=== PATIENT | male | born 1955 | race Hispanic/Latino ===

== ENCOUNTER → 2019-05-23 | Day surgery (SDC) | payer BC ==
[2019-05-20 16:47] LABS: BASOPHILS # (AUTO) 0.1 (0.0-0.1); BASOPHILS % 0.5 % (0.0-1.0); EOSINOPHILS # (AUTO) 0.1 (0.0-0.4); HEMATOCRIT 43.8 % (38.2-49.6); HEMOGLOBIN 14.7 g/dL (14.0-18.0); LYMPHOCYTES # (AUTO) 2.2 (1.0-3.2); LYMPHOCYTES % 16.6 % (18.0-39.1); MEAN CORPUSCULAR HEMOGLOBIN 31.6 pg (28-32); MEAN CORPUSCULAR HGB CONC 33.6 g/dL (31-35); MEAN CORPUSCULAR VOLUME 94.2 fL (81-99); MONOCYTES # (AUTO) 1.1 (0.2-0.8); MONOCYTES % 8.5 % (4.4-11.3); NEUTROPHILS # (AUTO) 9.7 (2.1-6.9); NEUTROPHILS % 72.4 % (38.7-80.0); PLATELET COUNT 272 x10e3/uL (140-360); RED BLOOD COUNT 4.65 x10e6/uL (4.3-5.7); RED CELL DISTRIBUTION WIDTH 15.7 % (11.7-14.4)
[~2019-05-23] MED LIST: AVODART0.5 MG PO; FAMOTIDINE20 MG PO; FLOMAX0.4 MG PO; FUROSEMIDE40 MG PO; HYDROCHLOROTHIA25 MG PO; METHYLPREDNISOL40 MG PO; MYCOPHENOLATE250 MG PO; OFEV150 MG PO; OMEPRAZOLE40 MG PO; PROPOFOL IV EMULSION 10 MG/ML 20 ML VIAL ONE; TRELEGY ELLIPT1 EACH INH
--- OUTSIDE RECORDS SUMMARY | 2019-05-23 07:01 | XMS REPORT ---
Author [facility] Address Unknown Phone Unavailable Care Team Providers Care Property Maintenance Supervisor Name Role Phone Unavailable Unavailable Payers Payer Name Policy Type Policy Number Effective Date Expiration Date Problems This patient has no known problems. Allergies, Adverse Reactions, Alerts Allergy Name Allergy Type Status Severity Reaction(s) Onset Date Inactive Date Treating Clinician Comments No Known Allergies DA Active U 2019-01-21 00:00:00 Medications This patient has no known medications. Results Test Description Test Time Test Comments Text Results Atomic Results Result Comments B-TYPE NATRIURETIC PEPTIDE 2019-01-21 10:15:00 B-TYPE NATRIURETIC PEPTIDE (test code=BNP) 18.28 pgram/mL 0-100 BASIC METABOLIC [id number] 09:58:00* Test Item Value Reference Range Comments SODIUM (test code=NA) 139 mmol/L 136-145 POTASSIUM (test code=K) 3.3 mmol/L 3.5-5.1 CHLORIDE (test code=CL) 106.0 mmol/L 98-107 CARBON DIOXIDE (test code=CO2) 27.0 mmol/L 21-32 ANION GAP (test code=GAP) 9.3 10-20 GLUCOSE (test code=GLU) 103 mg/dL 74-106 BLOOD UREA NITROGEN (test code=BUN) 10 mg/dL 7-18 GLOMERULAR FILTRATION RATE (test code=GFR) > 60 mL/min >=60 Estimated GFR by using Modified MDRD formula.Chronic kidney disease is defined as either kidney damageor GFR <60 mL/min/1.73 m2 for >3 months. CREATININE (test code=CREAT) 0.70 mg/dL 0.7-1.3 BUN/CREATININE RATIO (test code=BUN/CREA) 13.4 10-20 CALCIUM (test code=CA) 9.4 mg/dL 8.5-10.1 [id number] 09:58:00* Test Item Value Reference Range Comments TROPONIN-I (test code=TROPI) <0.015 ng/mL 0-0.045 BASIC METABOLIC [id number] 09:50:00* Test Item Value Reference Range Comments SODIUM (test code=NA) 139 mmol/L 136-145 POTASSIUM (test code=K) 3.3 mmol/L 3.5-5.1 CHLORIDE (test code=CL) 106.0 mmol/L 98-107 CARBON DIOXIDE (test code=CO2) mmol/L 21-32 ANION GAP (test code=GAP) 10-20 GLUCOSE (test code=GLU) mg/dL 74-106 BLOOD UREA NITROGEN (test code=BUN) mg/dL 7-18 GLOMERULAR FILTRATION RATE (test code=GFR) mL/min >=60 CREATININE (test code=CREAT) mg/dL 0.7-1.3 BUN/CREATININE RATIO (test code=BUN/CREA) 10-20 CALCIUM (test code=CA) mg/dL 8.5-10.1 [id number] 09:50:00* Test Item Value Reference Range Comments TROPONIN-I (test code=TROPI) ng/mL 0-0.045 CBC W/O [id number] 09:36:00* Test Item Value Reference Range Comments WHITE BLOOD CELL (test code=WBC) 10.2 K/mm3 4.5-12.5 RED BLOOD CELL (test code=RBC) 4.90 mill/mm3 4.0-5.8 HEMOGLOBIN (test code=HGB) 14.1 gram/dL 13.0-17.5 HEMATOCRIT (test code=HCT) 43.9 % 42.0-52.0 MEAN CELL VOLUME (test code=MCV) 89.6 fL 80-98 MEAN CELL HGB (test code=MCH) 28.8 picogram 27.0-33.0 MEAN CELL HGB CONCETRATION (test code=MCHC) 32.1 gram/dL 33.0-36.0 RED CELL DISTRIBUTION WIDTH (test code=RDW) 13.6 % 11.6-16.2 PLATELET COUNT (test code=PLT) 348 K/mm3 150-450 MEAN PLATELET VOLUME (test code=MPV) 9.2 fL 6.7-11.0 CBC W/O [id number] 09:34:00* Test Item Value Reference Range Comments WHITE BLOOD CELL (test code=WBC) K/mm3 4.5-12.5 RED BLOOD CELL (test code=RBC) mill/mm3 4.0-5.8 HEMOGLOBIN (test code=HGB) 14.1 gram/dL 13.0-17.5 HEMATOCRIT (test code=HCT) 43.9 % 42.0-52.0 MEAN CELL VOLUME (test code=MCV) fL 80-98 MEAN CELL HGB (test code=MCH) picogram 27.0-33.0 MEAN CELL HGB CONCETRATION (test code=MCHC) gram/dL 33.0-36.0 RED CELL DISTRIBUTION WIDTH (test code=RDW) % 11.6-16.2 PLATELET COUNT (test code=PLT) K/mm3 150-450 MEAN PLATELET VOLUME (test code=MPV) fL 6.7-11.0 - XR CHEST 1 [id number] 09:32:00 FAX: Armani Urban [phone] [place]: St: [facility] FAX: Vargas Anglin Name: JAVI PATEL [facility] : 1955 Age/S: 64/M [address] [facility] #: [id number] Loc: [place] [address] Phys: Vargas Anglin MD Acct: [id number] Dis Date: Status: REG ER PHONE #: [phone] Exam Date: 01/21/2019 09 FAX #: [phone] Reason: CHEST PAIN EXAMS: CPT CODE: [id number] XR CHEST 1 V 82142 HISTORY: Chest pain and bradycardia. COMPARISON: None available. Single view chest: Bilateral peripheral and basal scarring. No definite infiltrates, effusion or congestion. Cardiomegaly. IMPRESSION: Bibasal peripheral scarring and dependent changes. No acute infiltrates, effusion or congestion. at 0932 Reported and signed by: Orlin Nixon M.D. CC: Armani Orantes; Vargas Anglin MD Technologist: WILLY MERAZ RT(R) Trnscrd Date/Time/By: 01/21/2019 (0932) : By: [email or web address] Orig Print D/T: S: 01/21/2019 (0712) PAGE 1 Signed Report TROPONIN I [id number] 09:26:00* Test Item Value Reference Range Comments TROPONIN I RAPID (test code=TROPIRAP) 0.02 ng/mL <0.08 Please Note New Reference Range 0.00-0.079 ng/mL - Negative>or=0.08 ng/mL - Positive The use of serial sampling and testing protocol is arecommended practice.An elevated troponin level alone is often not sufficient fordiagnosis of myocardial infarction. Troponin results obtained by different assays may vary.Evaluation of the extent of myocardial damage based onincrease of troponin would be valid only if similarmethodology is used. [id number] 09:17:00* Test Item Value Reference Range Comments GLUBED (test code=GLUBED) 99 mg/dL 74-106 Performed by certified telegraph operator at [facility] ARTERIAL BLOOD [id number] 08:58:00* Test Item Value Reference Range Comments ARTERIAL BLOOD GAS PH (test code=PHA) 7.49 7.35-7.45 ARTERIAL BLOOD GAS PCO2 (test code=PCO2A) 33.1 mm Hg 35-45 ARTERIAL BLOOD GAS PO2 (test code=PO2A) 73.3 mmHg 80-100 BICARBONATE TOTAL HCO3 (test code=HCO3) 24.8 mmol/L 23.0-27.0 BASE EXCESS (test code=DON) 2.1 mmol/L -3.0-5.0 ABG O2 SATURATION (test code=SATA) 94.7 % 90.0-98.0 ABG TYPE (test code=TYPEA) Arterial FIO2 (test code=FIO2A) 21.0 ABG SITE (test code=SITEA) Lt RADIAL ARTERY MODIFIED ALLENS (test code=MODALL) Yes CHECK PERFORMED HEMATOCRIT (test code=HCT/ABG) 45 % 42-52 TOTAL HGB (test code=THB) 15.2 gram/dL 13.0-17.5 HGB O2 SAT (test code=HBOSAT) 93.4 % 94.00-98.00 CARBOXYHEMOGLOBIN (test code=HOHGBT) 1.1 %totalHg 0.5-1.5 METHEMOGLOBIN (test code=METHGB) 0.3 % 0.0-1.50 O2 CONTENT (test code=O2CT) 20.0 % vol 18.0-22.0
[2019-05-23 10:49] VITALS: BP 128/79
== END | disposition home or self-care (01) ==
LOC: OR 06:53
PROVIDERS: ATTEND Internal Medicine Gastroenterology
DX: Z12.11 Encounter for screening for malignant neoplasm of colon (principal); K62.1 Rectal polyp; K64.8 Other hemorrhoids; Z71.3 Dietary counseling and surveillance; I10 Essential (primary) hypertension; G47.33 Obstructive sleep apnea (adult) (pediatric); J84.10 Pulmonary fibrosis, unspecified; E66.01 Morbid (severe) obesity due to excess calories; Z01.810 Encounter for preprocedural cardiovascular examination; Z01.812 Encounter for preprocedural laboratory examination; Z99.81 Dependence on supplemental oxygen; Z68.39 Body mass index [BMI] 39.0-39.9, adult
CPT/HCPCS: 36415; 45381; 45385; 85025; 93005; J2704; 45378